=== PATIENT | male | born 1930 | race Caucasian/White ===

== ENCOUNTER 2016-06-20 08:45 | Emergency (ER) | payer MEDICARE ==
[2016-06-20] MEDS ORDERED: ONDANSETRON 4 MG/2ML 2 ML VIAL ONE (09:12)
[2016-06-20] MEDS ORDERED: MORPHINE SULFATE 4 MG/ML SYRINGE ONE (09:12)
[2016-06-20 10:04] LABS: URINE BILIRUBIN NEGATIVE (NEGATIVE); URINE BLOOD 3+ (NEGATIVE); URINE GLUCOSE (UA) NEGATIVE (NEGATIVE); URINE LEUKOCYTE ESTERASE NEGATIVE (NEGATIVE); URINE NITRITE NEGATIVE (NEGATIVE); URINE PROTEIN 2+ (NEGATIVE); URINE UROBILINOGEN NORMAL (0-1 mg/dl)
[2016-06-20 10:06] LABS: URINE APPEARANCE HAZY; URINE COLOR AMBER
[2016-06-20 10:13] LABS: URINE BACTERIA FEW; URINE EPITHELIAL CELLS 0-2 /hpf; URINE OTHER SPERM PRESENT; URINE RBC 20-30 /hpf; URINE WBC 0-2 /hpf
[2016-06-20 10:48] LABS: ABSOLUTE NEUTROPHIL COUNT 3.4 K/mm3 (1.8-7.7); BASO % 0.5 % (0.2-1.0); EOS # 0.1 (0.0-0.5); EOS % 1.6 % (0.9-2.9); HEMATOCRIT 37.7 % (32.0-52.0); HEMOGLOBIN 12.6 gm/l (14.0-18.0); IMM NEUT% 0.5 % (0-1); LYMPH # 0.6 (1.0-4.8); LYMPH % 14.2 % (15-45); MEAN CELL VOLUME 104.4 fl (80.0-94.0); MEAN CORPUSCULAR HEMOGLOBIN 34.9 pg (27.0-31.0); MEAN CORPUSCULAR HGB CONC 33.4 g/dl (33.0-37.0); MEAN PLATELET VOLUME 8.9 fl (7.4-10.4); MONO # 0.3 (0.0-0.8); MONO % 5.9 % (4-12); NEUT % 77.3 % (43-75); PLATELET COUNT 263 K/mm3 (130-400); RED CELL DISTRIBUTION WIDTH 13.6 % (11.5-14.5)
[2016-06-20 11:04] LABS: ALB/GLOB RATIO 0.3 (>1.0); ALBUMIN 2.7 gm/dL (3.5-5.7); CALCIUM 9.8 mg/dL (8.6-10.3)
--- NOTE | 2016-06-20 12:41 | US ---
Name: TOMER COOK Exam: Left renal ultrasound Comparison: None Clinical history: Gross hematuria Findings: Left kidney measures 11.0 x 5.3 x 4.2 cm which is normal. Cortical thickness is normal. At the upper pole of the left kidney, there is a 2.0 x 1.8 x 1.6 cm cyst which accounts for the prior CT abnormality. There is no calculus, hydronephrosis or perinephric fluid. Bladder volume is 78 cc and there is mild wall thickening. Ureteral jets are not identified on this exam. The distal abdominal aorta is atherosclerotic and mildly aneurysmal at 3.1 cm in greatest diameter. There is no periaortic fluid. Right kidney was not imaged per physician order Impression: 1. No hydronephrosis or calculus 2. 2.0 cm cyst at the upper pole of the left kidney accounting for the prior CT abnormality 3. Thickened bladder wall which may represent chronic outlet obstruction or chronic cystitis 4. 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 Note: The above report was uploaded to [facility]'s electronic medical records system at 1237 hours.
[2016-06-20] MEDS ORDERED: OXYCODONE/ACETAMINOPHEN 5/325 MG TABLET ONE (14:05)
== END 2016-06-20 15:21 | disposition home or self-care (01) ==
LOC: ED 08:45
DX: R31.9 Hematuria, unspecified (principal); G89.29 Other chronic pain; M54.9 Dorsalgia, unspecified; Z85.79 Personal history of other malignant neoplasms of lymphoid, hematopoietic and related tissues; E78.5 Hyperlipidemia, unspecified; N40.1 Benign prostatic hyperplasia with lower urinary tract symptoms; Z87.891 Personal history of nicotine dependence

== ENCOUNTER 2016-06-22 21:10 | Observation (INO) | payer MEDICARE ==
[2016-06-22] MEDS ORDERED: ONDANSETRON 4 MG/2ML 2 ML VIAL ONE (21:47)
[2016-06-22] MEDS ORDERED: SODIUM CHLORIDE 0.9% 500 ML ONE (21:47)
[2016-06-22] MEDS ORDERED: MAGNESIUM CITRATE 300 ML BOT ONE (21:48)
[2016-06-22 22:01] LABS: ABSOLUTE NEUTROPHIL COUNT 2.2 K/mm3 (1.8-7.7); BASO % 0.5 % (0.2-1.0); EOS # 0.1 (0.0-0.5); EOS % 3.4 % (0.9-2.9); HEMATOCRIT 34.3 % (32.0-52.0); HEMOGLOBIN 11.5 gm/l (14.0-18.0); IMM NEUT% 0.7 % (0-1); LYMPH # 1.2 (1.0-4.8); MEAN CELL VOLUME 105.9 fl (80.0-94.0); MEAN CORPUSCULAR HEMOGLOBIN 35.5 pg (27.0-31.0); MEAN CORPUSCULAR HGB CONC 33.5 g/dl (33.0-37.0); MEAN PLATELET VOLUME 9.3 fl (7.4-10.4); MONO # 0.4 (0.0-0.8); MONO % 10.8 % (4-12); NEUT % 54.6 % (43-75); PLATELET COUNT 213 K/mm3 (130-400); RED CELL DISTRIBUTION WIDTH 13.6 % (11.5-14.5)
[2016-06-22] MEDS ORDERED: LIDOCAINE 2% UROJECT 10 ML ONE (22:03)
[2016-06-22 22:24] LABS: SPECIFIC GRAVITY 1.015 (1.001-1.030); URINE BILIRUBIN NEGATIVE (NEGATIVE); URINE BLOOD 3+ (NEGATIVE); URINE GLUCOSE (UA) NEGATIVE (NEGATIVE); URINE LEUKOCYTE ESTERASE NEGATIVE (NEGATIVE); URINE NITRITE NEGATIVE (NEGATIVE); URINE PROTEIN 1+ (NEGATIVE); URINE UROBILINOGEN NORMAL (0-1 mg/dl)
[2016-06-22 22:30] LABS: URINE APPEARANCE CLEAR; URINE COLOR YELLOW
[2016-06-22 22:37] LABS: TROPONIN I 0.11 ng/ml (0.0-0.06)
[2016-06-22 22:39] LABS: URINE RBC 0-2 /hpf
[2016-06-22 22:39] LABS: CKMB ISOENZYME 1.9 ng/ml (0.6-6.3)
[2016-06-22 22:41] LABS: URINE BACTERIA 0; URINE EPITHELIAL CELLS 0 /hpf; URINE WBC NEG /hpf
[2016-06-22 22:42] LABS: ALBUMIN 2.6 gm/dL (3.5-5.7); CALCIUM 9.5 mg/dL (8.6-10.3)
[2016-06-22 22:43] LABS: ALB/GLOB RATIO 0.4 (>1.0)
[2016-06-23] MEDS ORDERED: SODIUM CHLORIDE 0.9% 100 ML IV PRN (00:04)
[2016-06-23] MEDS ORDERED: MENTHOL/CETYLPYRD 1 EACH LOZENGE PO PRN (00:04)
[2016-06-23] MEDS ORDERED: BISACODYL 5 MG TABLET.EC PO PRN (00:04)
[2016-06-23] MEDS ORDERED: BLISTEX LIPSTICK 1 EACH TP PRN (00:04)
[2016-06-23] MEDS ORDERED: ACETAMINOPHEN 325 MG TABLET PO PRN (00:04)
[2016-06-23] MEDS ORDERED: BISACODYL 10 MG SUP PR PRN (00:04)
[2016-06-23] MEDS ORDERED: MAGNESIUM HYDROXIDE 30 ML UDCUP PO PRN (00:04)
[2016-06-23] MEDS ORDERED: IV START KIT ONE ×2 (00:33→11:09)
[2016-06-23] MEDS ORDERED: SODIUM CHLORIDE 0.9% 1,000 ML IV SCH (00:45)
[2016-06-23] MEDS ORDERED: PUMP TUBING ONE (00:51)
[2016-06-23] MEDS: HYDROCODONE/ACETAMINOPHEN 5/325MG TABLET PO PRN (01:19)
[2016-06-23] MEDS ORDERED: FLU VACC 2016-17 (65 YR+)/PF 180 MCG/0.5 ML SYRINGE IM V ONE (06:28)
[2016-06-23] MEDS ORDERED: PNEUMOCOCCAL 23-VAL P-SAC VAC 0.5 ML VIAL IM V ONE (06:28)
[2016-06-23 06:35] VITALS: BMI 27.3
[2016-06-23 07:25] LABS: BASO % 0.3 % (0.2-1.0); EOS # 0.1 (0.0-0.5); EOS % 3.1 % (0.9-2.9); HEMATOCRIT 31.9 % (32.0-52.0); HEMOGLOBIN 10.9 gm/l (14.0-18.0); IMM NEUT% 0.3 % (0-1); LYMPH % 27.3 % (15-45); MEAN CELL VOLUME 104.2 fl (80.0-94.0); MEAN CORPUSCULAR HEMOGLOBIN 35.6 pg (27.0-31.0); MEAN CORPUSCULAR HGB CONC 34.2 g/dl (33.0-37.0); MEAN PLATELET VOLUME 9.3 fl (7.4-10.4); MONO # 0.4 (0.0-0.8); MONO % 11.9 % (4-12); NEUT % 57.1 % (43-75); PLATELET COUNT 185 K/mm3 (130-400); RED CELL DISTRIBUTION WIDTH 13.4 % (11.5-14.5)
--- NOTE | 2016-06-23 07:46 | RAD ---
CHEST-AP BEDSIDE HISTORY: Weakness for 2 weeks. COMPARISONS: None. FINDINGS: A single view of the chest was performed in the upright position demonstrating normal appearing soft tissue and bony structures. The heart size is within expected for technique. There is linear density seen in the right perihilar region on the left pulmonary base. No effusion or pneumothorax is visualized. The hilar and mediastinal structures are intact. IMPRESSION: 1. Linear atelectasis or scarring within the right perihilar region and left pulmonary base. 2. An otherwise negative portable chest.
[2016-06-23] MEDS: DOCUSATE SODIUM 100 MG CAPSULE PO SCH ×2 (08:19→20:49)
--- NOTE | 2016-06-23 08:45 | HP ---
Ainsley Bradley [id number] CHIEF COMPLAINT: Weakness. HISTORY OF PRESENT ILLNESS: The patient is an 85-year-old male brought to the [facility] Emergency Department by ambulance due to weakness. He lives at the [facility] independent living area. He had a well care check by the nurse there and was unable to get out of his chair. Emergency medical services were contacted to transport him to our hospital for further evaluation. He has had problems with ongoing low back pain for several weeks now, which came on fairly suddenly toward the end of May. He was evaluated in our emergency department on June 05 and had extensive degenerative changes seen on CT images. He has been prescribed narcotic medications and this has been helpful for his pain symptoms. he has had a history of benign prostatic hypertrophy and has had some constipation, and increasing urinary difficulties. In the emergency department he was found to have bladder full of urine at 750 mL, I believe on a postvoid residual. A Tilley catheter was placed. He has experienced some constipation and has not had a bowel movement in three or four days. His weakness came on suddenly today. REVIEW OF SYSTEMS: Negative for any recent fevers or chills. He denies any upper respiratory symptoms, cough, chest pain, shortness of breath or palpitations. He has had no nausea or vomiting. No abdominal pain. No diarrhea. He has significant low back pain, but denies any radiculopathy. He has had no headaches, fainting, blackouts, or seizures. He denies any change in his chronic urgency and frequency. He has had no dysuria. PAST MEDICAL HISTORY: Not very well known. He is not a very good historian. He has a history of multiple myeloma and hypertension. He may have had some heart problems, he is not sure. He does not know his medications. [facility] He has never been hospitalized here before. It is unclear what [facility] he [facility]. PAST SURGICAL HISTORY: Significant for tonsillectomy and cataract surgery bilaterally. ALLERGIES: He has no known drug allergies. CURRENT MEDICATIONS: Unknown. He takes five pills, one of them may be Flomax. FAMILY HISTORY: Unremarkable. SOCIAL HISTORY: He lives independently at the [facility]. He is . He has a daughter who lives in [place], [place]. Another daughter who lives on the [place]. He has a cousin who is acting as his power of grain commodity manager assisting with bill payment, this is Sharon Porter, no documentation of any health care power of grain commodity manager is available. No POLST form is on file or advanced directive. No records from the [place] have arrived despite request. He is a former smoker, quit 20 years ago after a 15 pack year history of smoking. Drinks alcohol socially, but rarely. He is retired from construction. PHYSICAL EXAMINATION: VITAL SIGNS: In the emergency department showed a blood pressure of 145/77, respirations 16, oxygen saturation 95% on room air, temperature is 98.0, pulse 77. GENERAL: This is an elderly male in no acute distress. HEENT: Shows pupils equal, round, and reactive to light. Extraocular movements are intact. No oral lesions are present. NECK: Supple without lymphadenopathy or thyromegaly. LUNGS: Clear to auscultation bilaterally. CARDIOVASCULAR: Reveals a regular rate and rhythm with a 2/6 systolic murmur. ABDOMEN: Soft, nontender, nondistended with positive bowel sounds. GENITOURINARY: Deferred. RECTAL: Deferred. EXTREMITIES: Show no peripheral edema. NEUROLOGIC: Nonfocal. Patient does have diffuse global weakness. Cranial nerves II-XII appear to be intact. DIAGNOSTIC: No diagnostic imaging studies were performed. LABORATORY: CBC shows a white count of 4.1, hemoglobin of 11.5, platelet count of 213,000. Chemistry profile shows a sodium of 128, potassium 3.8, carbon dioxide 96, BUN 41, creatinine 1.6, glucose 86. Liver function tests are normal. Total CPK is 61. CK-MB is 1.9. Troponin I is 0.11. B-type natiuretic peptide is 294. Albumin is 2.6, globulin markedly elevated at 7.1. Urinalysis shows specific gravity of 1.015, 1+ protein, 3+ blood, 0-2 red cells, negative white cells, negative bacteria. ASSESSMENT: The patient has generalized weakness. He has acute low back with degenerative lumbar disc disease. He has acute urinary retention on top of a history of benign prostatic hypertrophy. He has evidence of acute kidney injury with a creatinine up to 1.6, baseline creatinine is around 1.3. He has hyponatremia, to some degree this appears to be chronic, last sodium measured two days ago was 132. He appears to be slightly dehydrated. He has a history of multiple myeloma with evidence of possible recurrence. He is placed under observation on the med/surg unit. With his acute kidney injury and inability to stand, I think he may meet criteria for admission. I am going to review with care management later on today. He will be gently hydrated. A Tilley catheter has been placed in his bladder. Will monitor his sodium. We will get physical therapy and occupational therapy to evaluate and treat the patient. Further treatment and recommendations will depend on his hospital course. Venous thromboembolism risk is considered low if he remains observation status. We will work to get records from the [facility]. We will work to get a list of medications from the [facility] and anticipate the patient will likely need placement of some sort, we will work with care management to achieve this. JOB: [id number]
[2016-06-23] MEDS ORDERED: BISACODYL 10 MG SUP PR ONE (09:27)
[2016-06-23] MEDS ORDERED: SODIUM CHLORIDE 0.9% FLUSH 10 ML ONE (11:09)
--- NOTE | 2016-06-23 12:23 | CT ---
Exam: CT head without contrast COMPARISON: None INDICATION: Weakness. Confusion. TECHNIQUE: CT examination of the head was obtained without contrast. FINDINGS: There is no acute intracranial hemorrhage. There is no abnormal intra or extra-axial fluid collection. There is a large area of encephalomalacia within the left frontal mid convexity, most compatible with a remote ischemic event. Smaller area of encephalomalacia are seen within the right occipital lobe and cerebellum. Cortical treviño-white matter differentiation is otherwise maintained and there is no mass effect or midline shift. There is moderate global atrophy and minor ventriculomegaly. Dense intracranial vascular calcifications are seen. The visualized paranasal sinuses and mastoid air cells are well aerated. IMPRESSION: 1. No acute intracranial hemorrhage or CT evidence for acute ischemia. 2. Evidence of remote ischemic events involving the left frontal lobe, right occipital lobe and cerebellum. 3. Moderate global atrophy. Report was uploaded to the EMR at 1219 hours 06/23/2016.
[2016-06-23 12:40] LABS: MAGNESIUM 1.5 mg/dL (1.9-2.7)
[2016-06-23 13:08] LABS: THYROID STIMULATING HORMONE 1.65 uIU/ml (0.34-5.60)
[2016-06-23 13:15] LABS: FREE T4 0.87 ng/dL (0.58-1.64)
[2016-06-23 13:24] LABS: PHENYTOIN (DILANTIN) < 2.5 ug/ml (10-20)
--- NOTE | 2016-06-23 13:26 | CT ---
Exam: CT chest, abdomen and pelvis with contrast COMPARISON: Chest radiograph 06/22/[address] lumbar spine 06/05/2016 INDICATION: Weakness, confusion, myeloma. Urinary retention and spinal stenosis. TECHNIQUE: CT examination of the chest, abdomen and pelvis was obtained following the administration 125 mL Isovue-300 intravenous contrast. FINDINGS: There is gas within the urinary bladder which may simply be related to recent instrumentation/catheterization. The urinary bladder is not overly distended and there is no hydronephrosis. There is mild prostatomegaly. There is no pelvic lymphadenopathy or fluid collection. There is colonic diverticulosis without evidence of diverticulitis. There is no bowel obstruction, free air or free intraperitoneal fluid. There is an atheromatous and ectatic abdominal aorta which measures 3.2 cm distally. Mild hepatic steatosis. Spleen within normal limits. Gallbladder are unremarkable. The pancreas is within normal limits and there is no adrenal mass. A few subcentimeter low-density lesions are seen within both kidneys and are too small to characterize and are likely cysts. Dominant low-density lesion is seen within the upper pole of the left kidney and is compatible with a cyst. This measures 1.8 cm. There is no significant mediastinal or hilar lymphadenopathy by size criteria. Mild to moderate bilateral gynecomastia is appreciated. There is no pleural or pericardial effusion. There is subsegmental atelectasis within the right upper lobe and mild dependent atelectasis is seen within the bilateral lower lobes. Subtle groundglass opacity within the posterior left upper lobe is noted and also may reflect atelectasis. There is no focal airspace disease. There is focal subpleural thickening within the right anterior upper lobe which measures up to 12 mm in thickness and 5.2 cm in length. Underlying rib is somewhat mottled Coronary artery calcifications are appreciated Diffuse osteopenia. There is a mottled appearance of the bones, particularly within the spine although no dominant lytic lesion is identified. Multiple vertebral body compression fractures are seen within the spine. Superior endplate fracture of L2 is unchanged since 06/05/2016. There is a new superior endplate fracture of L4 with approximately 25% loss of height. Superior and inferior endplate fractures of T12 are noted, and the inferior endplate fracture appears new as well. There is approximately 5 mm of retropulsion of the fracture fragments at T12 which produce borderline central spinal canal stenosis; AP diameter of the spinal canal is 10 mm at this level. There is at least mild central spinal canal stenosis at L3-4 to slightly increased due to the interval compression fracture although there was already some mild central spinal canal stenosis at this level related to combination of facet arthropathy and degenerative disc disease. Mild central spinal canal stenosis at L4-5 is unchanged, related to combination of degenerative disc disease and facet arthropathy. IMPRESSION: 1. Since 06/05/2016, there are new endplate fractures involving the T12 and L4 vertebral bodies. There is a 5 mm of retropulsion of fragments from the T12 vertebral body which produce borderline central spinal canal stenosis at this level. There is a mild central spinal canal stenosis at L3-4 which is slightly increased since 06/05/2016 due to the superior endplate fracture of L4. Mild central spinal canal stenosis at L4-5 is similar. 2. Diffuse osteopenia and a mottled appearance of the spine without dominant lytic lesion in this patient with multiple myeloma. There is focal pleural thickening within the right anterior upper lobe which is of uncertain chronicity and significance. This is an area of focal scarring or atelectasis within the right upper lobe. Whether this is simply related to scarring versus an underlying malignancy is uncertain. There is no definite involvement of the adjacent rib. 3. No additional acute findings identified within the chest, abdomen or pelvis. Several chronic incidental findings as above, including colonic diverticulosis, mild prostatomegaly, atheromatous aorta, and bilateral renal cysts. Findings were discussed with Dr. Hale at 1310 hours 06/23/2016.
--- NOTE | 2016-06-23 16:43 | NUC MED ---
Exam: Nuclear medicine bone scan COMPARISON: CT 06/23/2016 and 06/05/2016 INDICATION: Weakness, ongoing back pain, urinary retention. Possible multiple myeloma. TECHNIQUE: 22.5 mCi of technetium 99m labeled HDP were administered and after a standard delay, whole body bone scan was obtained per protocol. FINDINGS: There is focal intense uptake within the T12 vertebral body which correlates with the compression fracture seen on today's CT. There is also focal uptake within the left anterior fifth rib which correlates with a nondisplaced fracture in this location. Interestingly, the new L4 vertebral body compression fracture demonstrates no uptake. There is a more subtle, small and somewhat rounded focus of increased uptake located in the skull, just to the left of midline seen on the anterior projections. No definite correlating lytic lesion is seen within the skull and today's CT head. Minor focus of uptake is seen in the region of the right T8 vertebral body, also without correlating lytic lesion on CT. Uptake is seen within the right wrist base of thumb likely related to degenerative changes. IMPRESSION: 1. No definite bone scan evidence for multiple myeloma but please note that bone scintigraphy may be negative/normal. Given appearance of the bones on today's CT, with a diffuse osteopenic and mottled appearance, if patient does have multiple myeloma favor he has the disseminated form. 2. Uptake within the T12 vertebral body compression fracture and left anterior fifth rib fracture.
[2016-06-24] MEDS: HYDROCODONE/ACETAMINOPHEN 5/325MG TABLET PO PRN ×2 (01:57→13:40)
[2016-06-24 07:19] LABS: ABSOLUTE NEUTROPHIL COUNT 3.1 K/mm3 (1.8-7.7); BASO % 0.6 % (0.2-1.0); EOS # 0.1 (0.0-0.5); EOS % 2.2 % (0.9-2.9); HEMATOCRIT 35.5 % (32.0-52.0); IMM NEUT% 0.2 % (0-1); LYMPH # 1.1 (1.0-4.8); LYMPH % 22.8 % (15-45); MEAN CELL VOLUME 103.5 fl (80.0-94.0); MEAN CORPUSCULAR HGB CONC 33.8 g/dl (33.0-37.0); MEAN PLATELET VOLUME 9.1 fl (7.4-10.4); MONO # 0.6 (0.0-0.8); MONO % 11.6 % (4-12); NEUT % 62.6 % (43-75); PLATELET COUNT 209 K/mm3 (130-400); RED CELL DISTRIBUTION WIDTH 13.4 % (11.5-14.5)
[2016-06-24 07:30] VITALS: BP 117/78
[2016-06-24 07:33] LABS: ALB/GLOB RATIO 0.3 (>1.0); ALBUMIN 2.3 gm/dL (3.5-5.7); CALCIUM 9.3 mg/dL (8.6-10.3)
[2016-06-24] MEDS: DOCUSATE SODIUM 100 MG CAPSULE PO SCH (08:53)
[2016-06-24] MEDS ORDERED: Magnesium Oxide 400 MG TABLET PO SCH (10:15)
--- NOTE | 2016-06-24 13:29 | DS ---
Ainsley Bradley [id number] DATE OF ADMISSION: June 22, 2016 DATE OF DISCHARGE: June 24, 2016 DISCHARGE DIAGNOSES: 1. Generalized weakness. 2. Urinary retention. 3. Low back pain with acute end plate fractures involving T12 and L4. 4. Acute constipation. 5. Hyponatremia. 6. Multiple myeloma. 7. Acute kidney injury. TO SUMMARIZE THE ADMISSION AND HOSPITAL COURSE: The patient is an 85-year-old male who was brought to the [facility] Emergency Department by ambulance because of weakness. In the emergency department he was found to have a full bladder up to 750 mL, which he was unable to empty and a catheter was placed. Patient also complained of constipation with lack of bowel movement for the past four days and worsening severe back pain. Laboratory studies showed elevated creatinine up to 1.6, normal white count, normal hemoglobin and normal electrolytes. Cardiac enzymes were negative. He was admitted to the hospitalist service and treated with IV hydration. The day after admission he had further diagnostic imaging studies including CT studies of the chest, abdomen, pelvis given his history of multiple myeloma and there was evidence of new endplate fractures of T12 and L4 with a 5 mm retropulsion of the fragments from T12 causing borderline central spinal canal stenosis, diffuse osteopenia in a molded appearance of the bone and the spine consistent with lytic lesions from multiple myeloma were seen. No other acute abnormalities were identified. He also underwent a CT of the brain which showed evidence of global atrophy and prior ischemic events, nothing acute, but he had encephalomalacia in the left frontal lobe, right occipital lobe, and cerebellum consistent with prior infarcts. He also underwent a bone scan showing uptake at the acute fracture sites. The patient's pain was managed with Percocet. His urinary retention improved after he had two large bowel movements and the catheter was removed. He was felt to medically stable for discharge to a care home facility. After assessments with physical therapy and occupational therapy it was felt he would benefit from this. His prior level of functioning was independent living at the [facility]. CODE STATUS: Based on discussion with the patient he would like to have his code status be do not resuscitate. PHYSICAL EXAMINATION: VITALS: At discharge showed a temperature of 98.4, pulse 69, blood pressure 117/78 respirations 18, oxygen saturations is 92% on room air. Body mass index 27.4, weight is 86.6 kg. GENERAL: This is a elderly male in no acute distress. HEENT: Unremarkable. NECK: Supple without lymphadenopathy or thyromegaly. LUNGS: Clear to auscultation bilaterally. CARDIOVASCULAR: Reveals a regular rate and rhythm with a 3/6 systolic murmur. ABDOMEN: Soft, nontender, nondistended with positive bowel sounds. EXTREMITIES: Show no peripheral edema. LABORATORY STUDIES ON THE DAY OF DISCHARGE: Sodium was stable at 133, potassium stable at 3.8, creatinine improved to 1.2 with a BUN of 21 and CBC was stable with a white count of 4.9, hemoglobin of 12.0, and a platelet count of 209,000. DISPOSITION: To [facility] where he will get physical therapy and occupational therapy services evaluate and treat, skin care, bowel care, podiatry care per house protocol. ALLERGIES: HE DOES HAVE ALLERGIES DOCUMENTED TO BACITRACIN, NEOMYCIN, AND POLYMYXIN B. DISCHARGE MEDICATIONS: Will to be resume: 1. Gabapentin 300 mg four times daily. 2. Percocet 5/325 one to two every four hours as needed for pain. 3. Hydrochlorothiazide 12.5 mg daily. 4. Prazosin 4 mg at bedtime. 5. Simvastatin 40 mg at bedtime. 6. Vitamin D3 2000 units daily. 7. Fluocinonide 0.05% applied topically twice daily to whatever rash he has. 8. He has a prescription for Viagra to take 100 mg as needed although, I do not think he is sexually active at this point. FOLLOW UP: I contacted the [facility] requesting that follow up be arranged for his multiple myeloma. Also prior to discharge he received a pneumococcal vaccination on June 23, 2016. JOB: [id number] CC: [facility]
== END 2016-06-24 14:45 ==
LOC: ED 21:10 → MS 23:03
PROVIDERS: ADMIT Family Medicine; ATTEND Internal Medicine
PROC: 3E0234Z Introduction of Serum, Toxoid and Vaccine into Muscle, Percutaneous Approach (ICD-10-PCS; principal; 2016-06-23)
DX: R53.1 Weakness (principal); N40.1 Benign prostatic hyperplasia with lower urinary tract symptoms; R33.8 Other retention of urine; M48.56XA Collapsed vertebra, not elsewhere classified, lumbar region, initial encounter for fracture; K59.00 Constipation, unspecified; N17.9 Acute kidney failure, unspecified; C90.00 Multiple myeloma not having achieved remission; E87.1 Hypo-osmolality and hyponatremia; Z23 Encounter for immunization; J98.11 Atelectasis; I67.82 Cerebral ischemia; H44.529 Atrophy of globe, unspecified eye; M84.48XA Pathological fracture, other site, initial encounter for fracture; R97.20 Elevated prostate specific antigen [PSA]
CPT/HCPCS: 90749; 90471; 90732; 83880 ×2; 85025 ×3; 82550 ×2; 82553; 87040; 80048; 80053 ×2; 82330; 84439; 83735; 80185; 84153; 84443; 84484 ×2; 81001; 36415 ×3; 71010; 78306; 74177; 70450; 71260; 97110; 97530; 97162; 97165; 99285 ×2; 96374; 96361 ×2; 93005; A9270 ×9; J2405; J7040; J7030; A9561; G0378 ×2; G0009